=== PATIENT | female | born 1985 | race Caucasian/White ===

== ENCOUNTER 2022-05-13 15:57 | Inpatient (IN) | payer BC ==
[~2022-05-13] VITALS: Ht 160 cm; Wt 61.2 kg
[~2022-05-13 15:57] MED LIST: IBUPROFEN600 MG PO
[2022-05-13 17:13] LABS: HEMOGLOBIN 13.9 gm/dl (12.3-15.3); RED BLOOD COUNT 4.24 M/UL (4.00-5.10)
[2022-05-13 17:30] LABS: BUN/CREATININE RATIO 13 (0-10)
[2022-05-14 01:53] LABS: HEMOGLOBIN 11.4 gm/dl (12.3-15.3); RED BLOOD COUNT 3.45 M/UL (4.00-5.10)
[2022-05-14 02:00] LABS: BUN/CREATININE RATIO 12 (0-10)
--- NOTE | 2022-05-14 11:01 | NUR ---
PROVIDER AWARE OF PT HEART RATE. NO NEW ORDERS GIVEN.
[2022-05-14] MEDS ORDERED: TRAZODONE HCL150 MG PO (11:19)
[2022-05-14] MEDS ORDERED: ZOLOFT100 MG PO (11:19)
[2022-05-14] MEDS ORDERED: WELLBUTRIN SR100 MG PO (11:19)
[2022-05-14] MEDS ORDERED: TEGRETOL XR100 MG PO ×2 (11:20→11:21)
[2022-05-15 03:18] LABS: HEMOGLOBIN 11.5 gm/dl (12.3-15.3); RED BLOOD COUNT 3.56 M/UL (4.00-5.10); WHITE BLOOD COUNT 10.5 K/UL (4.5-11.0)
[2022-05-15 03:42] LABS: BUN/CREATININE RATIO 9 (0-10)
[2022-05-15] MEDS ORDERED: LEVOFLOXACIN500 MG PO (08:55)
[2022-05-15] MEDS ORDERED: ZOFRAN 4 MG TAB4 MG PO (09:03)
[2022-05-16 04:48] LABS: HEMOGLOBIN 10.4 gm/dl (12.3-15.3); RED BLOOD COUNT 3.24 M/UL (4.00-5.10)
[2022-05-16 04:53] LABS: WHITE BLOOD COUNT 5.5 K/UL (4.5-11.0)
[2022-05-16 05:06] LABS: BUN/CREATININE RATIO 14 (0-10)
== END 2022-05-16 12:36 | disposition home or self-care (01) | DRG 872 ==
LOC: ER1 15:57 → M/S 19:19 → CDU 19:19 → M/S 20:55
PROVIDERS: Family Medicine; Internal Medicine; Nurse Practitioner; ADMIT Internal Medicine
DX: A41.51 Sepsis due to Escherichia coli [E. coli] (principal); N10 Acute pyelonephritis; R07.89 Other chest pain; Z20.822 Contact with and (suspected) exposure to COVID-19; Z82.49 Family history of ischemic heart disease and other diseases of the circulatory system; Z83.49 Family history of other endocrine, nutritional and metabolic diseases; Z79.899 Other long term (current) drug therapy
CPT/HCPCS: 0240U; 36415; 71045; 80048; 80053; 80307; 81001; 82550; 82553; 83605; 83735; 84132; 84484; 84703; 85025; 85027; 85652; 87040; 87077; 87081; 87086; 87186; 87880; 93005; 96365; 96374; 96375; 99285; C9113; G0480; J0696; J1650; J1885; J2270; J2405; J2550; J3475; J3480; Q9967